=== PATIENT | female | born 1955 | race Caucasian/White ===

== ENCOUNTER → 2017-02-17 | Outpatient (CLI) | payer OTHER, MEDICARE ==
[~2017-02-17] MED LIST: ACET325T21 PO; AMINOPHYLLINE 25 MG/ML, 10ML ONE; ASCO10004 PO; ASPI-496 PO; ASPI-770 NG; ASPI325T17 PO; ATOR-2 PO; CARV3.1212 PO; CARV6.252 PO; CETI-18 PO; CHOL2000 PO; DIAZ2TAB3 PO; ENOX40SY4 SQ; ESTR2TAB4 PO; FURO20TA3 PO; IPRA3AMP NPPB; LISI5TAB7 PO; MAGN400T26 PO; MULT-6 PO; ONDA4TAB13 SL; OXYC5CAP2 PO; OXYC5TAB3 PO; POTA10TA5 PO; REGADENOSON 0.4 MG/5 ML SYRINGE ONE; TICA90TA PO
== END | disposition home or self-care (01) ==
LOC: CFH 08:12
PROVIDERS: ATTEND Internal Medicine Cardiovascular Disease
DX: I35.8 Other nonrheumatic aortic valve disorders (principal); I51.7 Cardiomegaly; I25.10 Atherosclerotic heart disease of native coronary artery without angina pectoris; I25.5 Ischemic cardiomyopathy; I65.23 Occlusion and stenosis of bilateral carotid arteries; I10 Essential (primary) hypertension; I25.2 Old myocardial infarction; E78.5 Hyperlipidemia, unspecified; F17.210 Nicotine dependence, cigarettes, uncomplicated; Z86.73 Personal history of transient ischemic attack (TIA), and cerebral infarction without residual deficits; Z95.5 Presence of coronary angioplasty implant and graft
CPT/HCPCS: 78452; 93017; 93306; 93880; A9502; J2785; J0280

== ENCOUNTER → 2018-03-08 | Outpatient (CLI) | payer MEDICARE ==
[~2018-03-08] MED LIST changes: -AMINOPHYLLINE 25 MG/ML, 10ML ONE; -ASPI-770 NG; +ASPI81TA59 NG; -IPRA3AMP NPPB; +IPRA3AMP30 NPPB; -REGADENOSON 0.4 MG/5 ML SYRINGE ONE
== END | disposition home or self-care (01) ==
LOC: CVU 12:39
PROVIDERS: ATTEND Internal Medicine Cardiovascular Disease
DX: I07.1 Rheumatic tricuspid insufficiency (principal); I70.8 Atherosclerosis of other arteries; I70.212 Atherosclerosis of native arteries of extremities with intermittent claudication, left leg; I65.23 Occlusion and stenosis of bilateral carotid arteries; I25.10 Atherosclerotic heart disease of native coronary artery without angina pectoris; I63.9 Cerebral infarction, unspecified; I10 Essential (primary) hypertension; E66.9 Obesity, unspecified
CPT/HCPCS: 0399T; 93306; 93880; 93922; 93926; 93978

== ENCOUNTER 2018-04-15 12:07 | Observation (INO) | payer MEDICARE ==
[2018-04-12 15:36] LABS: BASOPHILS # (AUTO) 0.04 x10^3/uL (0-0.1); BASOPHILS % (AUTO) 1 % (0-1); EOSINOPHILS % (AUTO) 2 % (1-7); LYMPHOCYTES % (AUTO) 28 % (22-44); MD NO; MEAN CORPUSCULAR HGB CONC 33.1 g/dL (32.4-35.8); MEAN CORPUSCULAR VOLUME 90.6 fL (80-100); MEAN PLATELET VOLUME 8.3 fL (7.4-10.4); MONOCYTES # (AUTO) 0.72 x10^3/uL (0.2-0.8); MONOCYTES % (AUTO) 8 % (2-9); NEUTROPHILS # (AUTO) 5.64 x10^3/uL (1.8-6.8); NEUTROPHILS % (AUTO) 61 % (42-75); PLATELET COUNT 278 x10^3/uL (130-400); RED BLOOD COUNT 4.64 x10^6/uL (3.82-5.3); RED CELL DISTRIBUTION WIDTH 13.9 % (9.6-15.2)
[2018-04-12 15:49] LABS: ANION GAP 6 mmol/L (5-15); CALCIUM 9.2 mg/dL (8.5-10.1); CHLORIDE 107 mmol/L (98-107)
[2018-04-12 15:52] LABS: ALANINE AMINOTRANSFERASE 31 U/L (12-78); ALKALINE PHOSPHATASE 92 U/L (45-117); BILIRUBIN,TOTAL 0.4 mg/dL (0.2-1.0); CREATININE 1.14 mg/dL (0.55-1.02)
[~2018-04-15] VITALS: Ht 161.3 cm; Wt 84.0 kg
[~2018-04-15 12:07] MED LIST changes: +ASCO100019 PO; +ATOR80TA PO; +CARV12.543 PO; +CETI10CA PO; +CHOL200024 PO; +FERR-46 PO; +LIDOCAINE-MPF 1%, 5ML ONE; +MAGN400T7 PO; +MULT-658 PO; +NITR0.4T28 SL; +POTA10TA6 PO; +TICA60TA PO; +VITA1TAB19 PO
[2018-04-15] MEDS ORDERED: SODIUM CHLORIDE 0.9% 1,000 ML IV SCH (13:04)
[2018-04-15 13:37] VITALS: BP 158/81
[2018-04-15] MEDS ORDERED: VISIPAQUE 270 MG/ML, 50ML BOTTLE ONE (14:00)
[2018-04-15] MEDS ORDERED: NALOXONE 1 MG/ML, 2ML ONE (14:04)
[2018-04-15] MEDS ORDERED: HEPARIN 1,000 UNITS/ML, 10ML ONE (14:04)
[2018-04-15] MEDS ORDERED: PROTAMINE SULFATE 10 MG/ML, 25ML ONE (14:04)
[2018-04-15] MEDS ORDERED: FENTANYL PF 100 MCG/2ML ONE ×2 (14:05)
[2018-04-15] MEDS ORDERED: NITROGLYCERIN 5 MG/ML, 10ML ONE (14:06)
[2018-04-15] MEDS ORDERED: FLUMAZENIL 0.1 MG/1 ML, 5ML ONE (14:06)
[2018-04-15] MEDS ORDERED: MIDAZOLAM 1 MG/ML, 5ML ONE (14:06)
[2018-04-15] MEDS ORDERED: ONDANSETRON 2MG/ML, 2ML IVPush ONE (18:30)
[2018-04-15] MEDS ORDERED: ONDANSETRON 2MG/ML, 2ML ONE (18:35)
[2018-04-15] MEDS ORDERED: ONDANSETRON 2MG/ML, 2ML IV PRN (19:30)
[2018-04-15] MEDS ORDERED: OXYcodone/APAP 5/325MG TABLET PO PRN (19:30)
[2018-04-15] MEDS ORDERED: HYDROmorphone 1 MG/ML, 1ML IV PRN (19:30)
[2018-04-15] MEDS ORDERED: ACETAMINOPHEN 325 MG TABLET PO PRN (19:45)
[2018-04-15 20:48] VITALS: BP 141/74
[2018-04-15] MEDS: CARVEDILOL 12.5 MG TABLET PO SCH (21:00)
[2018-04-15] MEDS ORDERED: ATORVASTATIN 80 MG TABLET PO SCH (21:00)
[2018-04-15] MEDS: BRILINTA PO SCH (21:00)
[2018-04-15] MEDS ORDERED: [UNRECOGNIZED DRUG - OTHER] PO SCH (21:00)
[2018-04-15] MEDS ORDERED: TICAGRELOR 90 MG TABLET PO SCH (21:00)
[2018-04-15] MEDS ORDERED: CETIRIZINE 10 MG TABLET PO SCH (21:00)
[2018-04-15 21:51] VITALS: BP 144/67
[2018-04-16 01:39] VITALS: BP 153/78
[2018-04-16 04:33] VITALS: BP 164/86
[2018-04-16] MEDS ORDERED: FUROSEMIDE 20 MG TABLET PO SCH (06:00)
[2018-04-16] MEDS: BRILINTA PO SCH (06:37)
[2018-04-16 07:49] VITALS: BP 171/85
[2018-04-16] MEDS: CARVEDILOL 12.5 MG TABLET PO SCH (08:30)
[2018-04-16] MEDS ORDERED: LISINOPRIL 5 MG TABLET PO SCH (09:00)
[2018-04-16] MEDS ORDERED: ASPIRIN 81 MG TABLET CHEW PO SCH (09:00)
[2018-04-16 11:51] VITALS: BP 141/81
== END 2018-04-16 12:41 | disposition home or self-care (01) ==
LOC: OUT 12:07 → 4NOR 16:31 → OUT 22:21 → DCLOUNGE 04-16 12:29
PROVIDERS: ADMIT Internal Medicine; ATTEND Internal Medicine
DX: I70.213 Atherosclerosis of native arteries of extremities with intermittent claudication, bilateral legs (principal); I74.5 Embolism and thrombosis of iliac artery
CPT/HCPCS: 36415; 37221; 75630; 80053; 85014; 85018; 85025; 96374; 99156; 99157; C1760; C1769; C1876; C1894; G0378; J1644; J2250; J2405; J3010; J7030; Q9966; J2720; J2310

== ENCOUNTER → 2019-03-14 | Outpatient (CLI) | payer MEDICARE ==
[~2019-03-14] MED LIST changes: -LIDOCAINE-MPF 1%, 5ML ONE; -MAGN400T7 PO; +MAGN400T9 PO; +REGADENOSON 0.4 MG/5 ML SYRINGE ONE
== END | disposition home or self-care (01) ==
LOC: CVU 09:25
PROVIDERS: ATTEND Internal Medicine Cardiovascular Disease
DX: I63.9 Cerebral infarction, unspecified (principal); I25.5 Ischemic cardiomyopathy; I10 Essential (primary) hypertension; I25.10 Atherosclerotic heart disease of native coronary artery without angina pectoris
CPT/HCPCS: 0399T; 78452; 93017; 93306; 93880; A9502; J2785

== ENCOUNTER → 2019-12-07 | Outpatient (CLI) | payer MEDICARE, OTHER ==
[~2019-12-07] MED LIST changes: +ACET-2274 PO; -ACET325T21 PO; +ASCO100018 PO; -ASCO10004 PO; -REGADENOSON 0.4 MG/5 ML SYRINGE ONE
== END | disposition home or self-care (01) ==
LOC: CFH 08:08
PROVIDERS: ATTEND Physician Assistant Medical
DX: I70.213 Atherosclerosis of native arteries of extremities with intermittent claudication, bilateral legs (principal); M79.662 Pain in left lower leg

== ENCOUNTER → 2020-03-26 | Outpatient (CLI) | payer MEDICARE, OTHER | END | disposition home or self-care (01) | LOC: CVU 12:38 | PROVIDERS: ATTEND Internal Medicine Cardiovascular Disease | DX: I08.0 Rheumatic disorders of both mitral and aortic valves (principal); I65.23 Occlusion and stenosis of bilateral carotid arteries; I11.9 Hypertensive heart disease without heart failure | CPT/HCPCS: 93306; 93880 ==